=== PATIENT | female | born 1970 | race Caucasian/White ===

== ENCOUNTER 2024-08-27 11:45 | Emergency (ER) | payer SELFPAY ==
[~2024-08-27] VITALS: Ht 162.6 cm; Wt 79.4 kg
[2024-08-27] MEDS ORDERED: DiphenhydrAMINE HCl 50 MG/ML 1ML Vial IV ONE (12:00)
[2024-08-27] MEDS ORDERED: Dexamethasone Sod Phos 10 MG/ML 1ML VIAL IV ONE (12:00)
[2024-08-29] MEDS ORDERED: KRILL OIL500 MG PO (07:59)
[2024-08-29] MEDS ORDERED: MULVITA PO (07:59)
[2024-08-29] MEDS ORDERED: NAC600 MG PO (07:59)
[2024-08-29] MEDS ORDERED: FAMO40 PO (08:00)
[2024-08-29] MEDS ORDERED: Nexium40 MG PO (08:00)
[2024-08-29] MEDS ORDERED: GABA400 PO (08:01)
[2024-08-29] MEDS ORDERED: PRAZ2 PO (08:02)
[2024-08-29] MEDS ORDERED: LEVOCETIRIZINE D5 MG PO (08:02)
[2024-08-29] MEDS ORDERED: SUCR1 PO (08:03)
[2024-08-29] MEDS ORDERED: ALBU90OI INH (08:04)
== END 2024-09-01 13:52 | disposition home or self-care (01) ==
LOC: ER 11:45
DX: T78.40XA Allergy, unspecified, initial encounter (principal); Z88.1 Allergy status to other antibiotic agents
CPT/HCPCS: 96374; 96375; 99282-25; J1100; J1200

== ENCOUNTER 2024-08-29 07:28 | Emergency (ER) | payer MEDICARE ==
[~2024-08-29] VITALS: Ht 162.6 cm; Wt 79.4 kg
[2024-08-29] MEDS ORDERED: KRILL OIL500 MG PO (07:59)
[2024-08-29] MEDS ORDERED: MULVITA PO (07:59)
[2024-08-29] MEDS ORDERED: NAC600 MG PO (07:59)
[2024-08-29] MEDS ORDERED: FAMO40 PO (08:00)
[2024-08-29] MEDS ORDERED: Nexium40 MG PO (08:00)
[2024-08-29] MEDS ORDERED: GABA400 PO (08:01)
[2024-08-29] MEDS ORDERED: PRAZ2 PO (08:02)
[2024-08-29] MEDS ORDERED: LEVOCETIRIZINE D5 MG PO (08:02)
[2024-08-29] MEDS ORDERED: SUCR1 PO (08:03)
[2024-08-29] MEDS ORDERED: ALBU90OI INH (08:04)
[2024-08-29 08:14] LABS: BASOPHILS ABSOLUTE AUTO 0.06 K/mm3 (0.00-0.23); BASOPHILS PERCENT AUTO 1 % (0-2); EOSINOPHILS ABSOLUTE AUTO 0.16 K/mm3 (0.00-0.68); EOSINOPHILS PERCENT AUTO 3 % (0-6); Hematocrit 38.0 % (33.0-51.0); Hemoglobin 13.2 g/dL (11.5-16.0); IMMATURE GRAN ABSOLUTE AUTO 0.00 K/mm3 (0.00-0.10); IMMATURE GRAN PERCENT AUTO 0 % (0-1); LYMPHOCYTES ABSOLUTE AUTO 2.89 K/mm3 (0.84-5.20); LYMPHOCYTES PERCENT AUTO 52 % (21-46); MONOCYTES ABSOLUTE AUTO 0.41 K/mm3 (0.16-1.47); MONOCYTES PERCENT AUTO 7 % (4-13); Mean Corpuscular HGB Conc 34.7 g/dL (31.5-36.5); Mean Corpuscular Volume 93 fL (80-100); NEUTROPHILS ABSOLUTE AUTO 2.00 K/mm3 (1.96-9.15); NEUTROPHILS PERCENT AUTO 36 % (41-73); NRBC ABSOLUTE 0.00 K/mm3 (0.00-0.02); NRBC Auto 0.0 /100 WBC (0.0-0.2); Platelet Count 213 K/mm3 (150-400); RDW Coefficient Variation 12.4 % (11.7-14.2); RDW Standard Deviation 42.5 fL (35.1-46.3)
[2024-08-29 08:33] LABS: Alanine Aminotransfer (ALT/SGP 24.0 U/L (12-78); Albumin, Blood 4.1 g/dL (3.4-5.0); Albumin/Globulin Ratio 1.1 (0.8-1.8); Anion Gap 8.0 mmol/L (3-11); Aspartate Aminotrans (AST/SGOT 17.0 U/L (12-37); Bilirubin, Total 1.0 mg/dL (0.1-1.0); Blood Urea Nitrogen 13.0 mg/dL (8-24); CO2, Blood 25.0 mmol/L (21-32); Calcium, Blood 9.3 mg/dL (8.5-10.1); Chloride, Blood 108.0 mmol/L (98-108); Creatinine, Blood 0.96 mg/dL (0.40-1.00); Globulin, Blood 3.7 g/dL (2.2-4.0); Glucose, Blood 95.0 mg/dL (70-99); Potassium, Blood 3.3 mmol/L (3.5-5.5); Sodium, Blood 138.0 mmol/L (136-145); Total Protein, Blood 7.8 g/dL (6.4-8.2)
[2024-08-29] MEDS ORDERED: Ipratropium Bromide INH 0.02% 0.5 mg/2.5ML Vial INH ONE (08:35)
== END 2024-08-29 10:07 | disposition home or self-care (01) ==
LOC: ER 07:28
PROVIDERS: Emergency Medicine
DX: R06.02 Shortness of breath (principal); T78.40XA Allergy, unspecified, initial encounter; Z91.011 Allergy to milk products; Z79.2 Long term (current) use of antibiotics; Z79.899 Other long term (current) drug therapy; J45.909 Unspecified asthma, uncomplicated
CPT/HCPCS: 71045; 80053; 85025; 93005; 93010; 96374; 99285-25; A9270; J2919

== ENCOUNTER 2024-12-21 05:26 | Emergency (ER) | payer OTHER ==
[~2024-12-21] VITALS: Ht 162.6 cm; Wt 77.1 kg
[~2024-12-21 05:26] MED LIST: ALBU90OI INH; FAMO40 PO; GABA400 PO; KRILL OIL500 MG PO; LEVOCETIRIZINE D5 MG PO; MULVITA PO; NAC600 MG PO; Nexium40 MG PO; PRAZ2 PO; SUCR1 PO
[2024-12-21] MEDS ORDERED: Ipratropium Bromide INH 0.02% 0.5 mg/2.5ML Vial INH ONE (05:50)
[2024-12-21] MEDS ORDERED: Dexamethasone Sod Phos 10 MG/ML 1ML VIAL PO ONE (05:50)
[2024-12-21] MEDS ORDERED: RX Prepack Albuterol 1 PREPACK/6.7 GM INH UD ONE (06:10)
== END 2024-12-21 06:23 | disposition home or self-care (01) ==
LOC: ER 05:26
DX: J45.909 Unspecified asthma, uncomplicated (principal); W54.8XXA Other contact with dog, initial encounter
CPT/HCPCS: 99284-25; A9270; J1100